=== PATIENT | female | born 1990 | race Two or more races ===

== ENCOUNTER 2022-12-20 17:49 | Emergency (ER) | payer OTHER ==
[~2022-12-20] VITALS: Ht 172.7 cm; Wt 95.7 kg
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
[2022-12-20] MEDS ORDERED: ACETAMINOPHEN 325 MG TABLET ONE (18:20)
[2022-12-20] MEDS ORDERED: CYCLOBENZAPRINE 10 MG TABLET ONE (18:29)
[2022-12-20] MEDS ORDERED: ACETAMINOPHEN 325 MG TABLET PO ONE (18:30)
[2022-12-20] MEDS ORDERED: CYCLOBENZAPRINE 10 MG TABLET PO ONE (18:30)
--- NOTE | 2022-12-20 19:00 | NUR ---
PUT ON MONITOR AND PULSE. PT BROUGHT TO CT VIA [facility]
--- NOTE | 2022-12-20 19:27 | NUR ---
Claude archerkatt in [facility] - 12/20/22 at 1932 by DEANDRE PATIENT IS STILL AT THE CT DEPT
--- NOTE | 2022-12-20 19:27 | NUR ---
PATIENT STILL IN CT DEPT
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
[2022-12-20] MEDS ORDERED: NAPR-1164 PO (20:07)
[2022-12-20] MEDS ORDERED: CYCL5TAB PO (20:07)
[2022-12-20] MEDS ORDERED: KETOROLAC TROMETHAMINE INJ 60 MG/2 ML VIAL IM ONE (20:30)
[2022-12-20 20:35] VITALS: BP 150/81
--- NOTE | 2022-12-20 20:35 | NUR ---
Patient discharged to home in stable condition. Written and verbal after care instructions given. Patient verbalizes understanding of instruction.
== END 2022-12-20 20:36 | disposition home or self-care (01) ==
LOC: ER 17:55
DX: S13.4XXA Sprain of ligaments of cervical spine, initial encounter (principal); J45.909 Unspecified asthma, uncomplicated; V89.2XXA Person injured in unspecified motor-vehicle accident, traffic, initial encounter; Y93.89 Activity, other specified; Y92.89 Other specified places as the place of occurrence of the external cause; Y99.8 Other external cause status
CPT/HCPCS: 99284; 72125; 73090; 73130; 73590 ×2; L0172